=== PATIENT | female | born 1970 | race Caucasian/White ===

== ENCOUNTER → 2016-09-07 | Outpatient (REF) | payer BC ==
[2016-09-07 15:51] LABS: ALBUMIN 3.2 GM/DL (3.2-5.2); ALKALINE PHOSPHATASE 114 U/L (45-117); ALT/SGPT 130 U/L (12-78); ANION GAP 9 MEQ/L (8-16); AST/SGOT 71 U/L (15-37); BILIRUBIN,TOTAL 0.4 MG/DL (0.2-1.0); BLOOD UREA NITROGEN 6 MG/DL (7-18); CALCIUM LEVEL 8.7 MG/DL (8.5-10.1); CARBON DIOXIDE LEVEL 27 MEQ/L (21-32); CHLORIDE LEVEL 100 MEQ/L (98-107); CHOLESTEROL LEVEL 195 MG/DL (<200); CREATININE FOR GFR 0.61 MG/DL (0.55-1.02); GLOMERULAR FILTRATION RATE > 60.0 (>58); GLUCOSE, FASTING 196 MG/DL (70-105); POTASSIUM SERUM 4.5 MEQ/L (3.5-5.1); SODIUM LEVEL 136 MEQ/L (136-145); TOTAL PROTEIN 6.4 GM/DL (6.4-8.2); TRIGLYCERIDES LEVEL 194 MG/DL (<150)
== END ==
LOC: M SFHCLACO 09:37
PROVIDERS: ATTEND Physician Assistant
DX: I10 Essential (primary) hypertension (principal); E78.2 Mixed hyperlipidemia; E11.9 Type 2 diabetes mellitus without complications; E03.9 Hypothyroidism, unspecified

== ENCOUNTER → 2016-11-23 | Outpatient (REF) | payer BC ==
[2016-11-23 15:35] LABS: ALBUMIN 3.1 GM/DL (3.2-5.2); ALBUMIN/GLOBULIN RATIO 0.86 (1.00-1.93); ALKALINE PHOSPHATASE 106 U/L (45-117); ALT/SGPT 129 U/L (12-78); ANION GAP 11 MEQ/L (8-16); AST/SGOT 119 U/L (15-37); BILIRUBIN,TOTAL 0.6 MG/DL (0.2-1.0); BLOOD UREA NITROGEN 6 MG/DL (7-18); CARBON DIOXIDE LEVEL 27 MEQ/L (21-32); CHLORIDE LEVEL 99 MEQ/L (98-107); CHOLESTEROL LEVEL 220 MG/DL (<200); GLOMERULAR FILTRATION RATE > 60.0 (>58); GLUCOSE, FASTING 190 MG/DL (70-105); POTASSIUM SERUM 4.7 MEQ/L (3.5-5.1); SODIUM LEVEL 137 MEQ/L (136-145); TOTAL PROTEIN 6.7 GM/DL (6.4-8.2); TRIGLYCERIDES LEVEL 205 MG/DL (<150)
== END ==
LOC: M SFHCLACO 09:25
PROVIDERS: ATTEND Physician Assistant
DX: I10 Essential (primary) hypertension (principal); E78.2 Mixed hyperlipidemia; E11.9 Type 2 diabetes mellitus without complications; E03.9 Hypothyroidism, unspecified

== ENCOUNTER → 2017-10-06 | Outpatient (REF) | payer BC ==
[2017-10-06 16:06] LABS: ESTIMATED AVERAGE GLUCOSE 183 MG/DL (60-110)
[2017-10-06 16:27] LABS: ALBUMIN 3.5 GM/DL (3.2-5.2); ALKALINE PHOSPHATASE 101 U/L (45-117); ALT/SGPT 73 U/L (12-78); ANION GAP 12 MEQ/L (8-16); AST/SGOT 52 U/L (7-37); BILIRUBIN,TOTAL 0.6 MG/DL (0.2-1.0); BLOOD UREA NITROGEN 11 MG/DL (7-18); CARBON DIOXIDE LEVEL 28 MEQ/L (21-32); CHLORIDE LEVEL 101 MEQ/L (98-107); CHOLESTEROL LEVEL 254 MG/DL (<200); CHOLESTEROL RISK RATIO 6.047 (<5); CREATININE FOR GFR 0.74 MG/DL (0.55-1.30); GLOMERULAR FILTRATION RATE > 60.0 (>58); GLUCOSE, FASTING 148 MG/DL (70-100); HDL CHOLESTEROL 42 MG/DL (>40); LDL CHOLESTEROL 151.6 MG/DL (<100); NON-HDL-C 212 MG/DL; POTASSIUM SERUM 4.6 MEQ/L (3.5-5.1); SODIUM LEVEL 141 MEQ/L (136-145); TRIGLYCERIDES LEVEL 302 MG/DL (<150)
== END ==
LOC: M SFHCLACO 09:45
DX: I10 Essential (primary) hypertension (principal); E78.2 Mixed hyperlipidemia; E11.9 Type 2 diabetes mellitus without complications; E03.9 Hypothyroidism, unspecified

== ENCOUNTER 2020-03-11 01:01 | Emergency (ER) | payer BC ==
[~2020-03-11] VITALS: Ht 165.1 cm; Wt 99.0 kg
[2020-03-11 01:02] VITALS: BP 164/79
[2020-03-11] MEDS ORDERED: [UNRECOGNIZED DRUG - REMARK] (01:10)
[2020-03-11] MEDS ORDERED: FARX1TAB3 PO (01:12)
[2020-03-11] MEDS ORDERED: LYRICA (01:12)
[2020-03-11] MEDS ORDERED: KETOROLAC 60MG 2ML VIAL IM ONE (01:45)
--- NOTE | 2020-03-11 02:27 | REPVR ---
PROCEDURE INFORMATION: Exam: XR Right Shoulder Exam date and time: 03/11/2020 2:04 AM Age: 49 years old Clinical indication: Pain; Shoulder; Right; Additional info: Fall with pain TECHNIQUE: Imaging protocol: XR Right shoulder. Views: 2 or more views. COMPARISON: No relevant prior studies available. FINDINGS: Bones/joints: No fracture or dislocation. Soft tissues: Normal. IMPRESSION: Negative right shoulder. No fracture or dislocation. Electronically signed by: Sukumar Morfin On 03/11/2020 02:27:54 AM
--- NOTE | 2020-03-11 02:27 | REPVR ---
PROCEDURE INFORMATION: Exam: XR Right Humerus Exam date and time: 03/11/2020 2:04 AM Age: 49 years old Clinical indication: Pain; Upper arm; Right; Additional info: Fall with pain TECHNIQUE: Imaging protocol: XR Right humerus Views: 2 or more views. COMPARISON: No relevant prior studies available. FINDINGS: Bones/joints: Normal. No fracture. Soft tissues: Normal. IMPRESSION: Negative right humerus. Electronically signed by: Sukumar Morfin On 03/11/2020 02:27:19 AM
--- NOTE | 2020-03-11 02:29 | REPVR ---
PROCEDURE INFORMATION: Exam: XR Right Wrist Exam date and time: 03/11/2020 2:04 AM Age: 49 years old Clinical indication: Pain; Wrist; Right; Additional info: Fall with pain TECHNIQUE: Imaging protocol: XR Right wrist. Views: 3 or more views. COMPARISON: No relevant prior studies available. FINDINGS: Bones/joints: Normal. No fracture. Soft tissues: Normal. IMPRESSION: Negative right wrist. Electronically signed by: Sukumar Morfin On 03/11/2020 02:29:28 AM
== END 2020-03-11 02:21 | disposition home or self-care (01) ==
LOC: M ED 01:01
DX: M25.511 Pain in right shoulder (principal); W00.9XXA Unspecified fall due to ice and snow, initial encounter; Y92.099 Unspecified place in other non-institutional residence as the place of occurrence of the external cause; Y93.9 Activity, unspecified; Y99.9 Unspecified external cause status; E11.9 Type 2 diabetes mellitus without complications
CPT/HCPCS: 73030; 73060; 73110; 96372; 99283; J1885

== ENCOUNTER 2021-02-16 13:13 | Emergency (ER) | payer BC ==
[~2021-02-16] VITALS: Ht 165.1 cm; Wt 87.5 kg
[~2021-02-16 13:13] MED LIST: FARX1TAB3 PO; LYRICA; [UNRECOGNIZED DRUG - REMARK]
[2021-02-16 13:14] VITALS: BP 155/88
--- OUTSIDE RECORDS SUMMARY | 2021-02-16 13:20 | CCD ---
Author Author [facility] Organization [facility] Address Unknown Phone Unavailable Support Name Relationship Address Phone [employer] ERLINDA. Next Of Kin [address] [place] [address] BURKINCSQ Next Of Kin [address] [place] [address] [employer] RESTAURANT Next Of Kin Unknown Unavailab le [employer] [place] [address] Unavailable LUKAS VILA Next Of Kin [address] [place] [address] Lukas Vila ECON [address] [place] [address] Unavailable Re-disclosure Warning The records that you are about to access may contain information from federally-assisted alcohol or drug abuse programs. If such information is present, then the following federally mandated warning applies: This information has been disclosed to you from records protected by federal confidentiality rules (42 CFR part 2). The federal rules prohibit you from making any further disclosure of this information unless further disclosure is expressly permitted by the written consent of the person to whom it pertains or as otherwise permitted by 42 CFR part 2. A general authorization for the release of medical or other information is NOT sufficient for this purpose. The Federal rules restrict any use of the information to criminally investigate or prosecute any alcohol or drug abuse patient.The records that you are about to access may contain highly sensitive health information, the redisclosure of which is protected by Article 27-F of the [facility] Public Health law. If you continue you may have access to information: Regarding HIV / AIDS; Provided by facilities licensed or operated by the [facility] Office of Mental Health; or Provided by the [facility] Office for People With Developmental Disabilities. If such information is present, then the following [facility] mandated warning applies: This information has been disclosed to you from confidential records which are protected by state law. State law prohibits you from making any further disclosure of this information without the specific written consent of the person to whom it pertains, or as otherwise permitted by law. Any unauthorized further disclosure in violation of state law may result in a fine or custodial sentence or both. A general authorization for the release of medical or other information is NOT sufficient authorization for further disc losure. Medications No Information Insurance Providers Payer name Policy type / Coverage type Policy ID Covered libertarian ID Covered libertarian's relationship to yeh Policy Yeh Plan Information [facility] [id number] SP [id number] BLUE [place] [id number] SP [id number] SELF PAY ANSI-Commercial [id number] ANSI-Commercial [id number] ANSI-Commercial [id number] ANSI-Commercial [id number] ANSI-Commercial [id number] [facility] [id number] SP [id number] CAROLINE EXCHANGE/MARKTPLACE [id number] SP [id number] CAROLINE [id number] SP [id number] [facility]-BS PPO 306 [id number] SP [id number] [facility] [id number] SP [id number] [facility] BC-BS PPO 306 [id number] SP [id number] ANSI-Commercial [id number] Problems, Conditions, and Diagnoses No Information Surgeries/Procedures No Information Results ID Date Data Source [id number] 02/09/2021 12:00:00 AM EST [facility] Name Value Range Interpretation Code Description Data Rossy rce(s) Supporting Document(s) PCR POSITIVE [facility] This lab was ordered by [facility] are and reported by [facility]. Procedure Social History No Information
--- NOTE | 2021-02-16 14:53 | REP ---
INDICATION: DYSPNEA/COUGH COMPARISON: None. TECHNIQUE: PA/Lateral FINDINGS: Lungs: There is mild patchy atelectasis or infiltrate in the right lung base. There is mild elevation of the right hemidiaphragm. There is mild linear fibro atelectatic change in the left lower lung. Heart: Normal in size. Mediastinum: Mediastinal silhouette unremarkable. Pleural angles: Unremarkable.. Bones and soft tissues: Unremarkable. IMPRESSION: There is mild patchy atelectasis or infiltrate in the right lung base. There is mild linear fibro atelectatic change in the left lower lung. <Electronically signed by Kyree Page > 02/16/21 [id number]
--- OUTSIDE RECORDS SUMMARY | 2021-02-16 22:43 | CCD ---
Author Author [facility] Organization [facility] Address Unknown Phone Unavailable Support Name Relationship Address Phone [employer] ERLINDA. Next Of Kin [address] [place] [address] BURK[employer]CSQ Next Of Kin [address] [place] [address] [employer] RESTAURANT Next Of Kin Unknown Unavailab le [employer] [place] [address] Unavailable LUKAS VILA Next Of Kin [address] [place] [address] Lukas Vila ECON [address] [place] [address] Unavailable Re-disclosure Warning The records that you [...] protected by Article 27-F of the [facility] Public Health law. If you continue you may have access to information: Regarding HIV / AIDS; Provided by facilities licensed or operated by the [facility] Office of Mental Health; or Provided by the [facility] Office for People With Developmental Disabilities. If such information is present, then the following [facility] mandated warning applies: This information has been [...] law may result in a fine or penitentiary sentence or both. A general authorization for the release of medical or other information is NOT sufficient authorization for further disc losure. Medications No Information Insurance Providers Payer name Policy type / Coverage type Policy ID Covered democrat ID Covered democrat's relationship to yeh Policy Yeh Plan Information [facility] [id number] SP [id number] BLUE [place] [id number] SP [id number] SELF PAY ANSI-Commercial [id number] ANSI-Commercial [id number] ANSI-Commercial [id number] ANSI-Commercial [id number] ANSI-Commercial [id number] [facility] [id number] SP [id number] CAROLINE EXCHANGE/MARKTPLACE [id number] SP [id number] CAROLINE [id number] SP [id number] [facility] PPO 306 [id number] SP [id number] [facility] [id number] SP [id number] [facility] BC-BS PPO 306 [id number] SP [id number] ANSI-Commercial [id number] Problems, Conditions, and Diagnoses No Information Surgeries/Procedures No Information Results ID Date Data Source [id number] 02/09/2021 12:00:00 AM EST [facility] Name Value Range Interpretation Code Description Data Rossy rce(s) Supporting Document(s) PCR POSITIVE [facility] This lab was ordered by [facility] are and reported by [facility]. Procedure Social History No Information
--- NOTE | 2021-02-21 06:41 | ED PDOC ---
Post-Departure Follow-Up radiology report faxed to [facility] Kia Uribe MD Feb 21, 2021 06:40
== END 2021-02-16 22:37 | disposition left against medical advice (07) ==
LOC: M ED 13:13
DX: Z53.21 Procedure and treatment not carried out due to patient leaving prior to being seen by health care provider (principal)

== ENCOUNTER → 2021-05-06 | Outpatient (REF) | payer BC ==
[2021-05-06 17:23] LABS: ALBUMIN 3.3 GM/DL (3.2-5.2); ALT/SGPT 40 U/L (12-78); BILIRUBIN,TOTAL 0.3 MG/DL (0.2-1.0); BLOOD UREA NITROGEN 11 MG/DL (7-18); CALCIUM LEVEL 9.1 MG/DL (8.5-10.1); CARBON DIOXIDE LEVEL 24 MEQ/L (21-32); CHLORIDE LEVEL 103 MEQ/L (98-107); CHOLESTEROL LEVEL 259 MG/DL (<200); CHOLESTEROL RISK RATIO 6.317 (<5); CREATININE FOR GFR 0.56 MG/DL (0.55-1.30); GLOMERULAR FILTRATION RATE > 60.0 (>51); GLUCOSE, FASTING 162 MG/DL (70-100); HDL CHOLESTEROL 41 MG/DL (>40); NON-HDL-C 218 MG/DL; POTASSIUM SERUM 4.3 MEQ/L (3.5-5.1); SODIUM LEVEL 136 MEQ/L (136-145); TOTAL 25(OH) VITAMIN D 10.6 NG/ML (30.0-100.0); TOTAL PROTEIN 6.8 GM/DL (6.4-8.2); TRIGLYCERIDES LEVEL 414 MG/DL (<150)
[2021-05-06 17:25] LABS: HEMOGLOBIN A1c 8.7 %
== END ==
LOC: M SFHCADAM 14:40
PROVIDERS: ATTEND Physician Assistant
DX: I10 Essential (primary) hypertension (principal); E78.2 Mixed hyperlipidemia; E11.9 Type 2 diabetes mellitus without complications; E03.9 Hypothyroidism, unspecified; E55.9 Vitamin D deficiency, unspecified

== ENCOUNTER → 2021-08-31 | Outpatient (REF) | payer BC ==
[2021-08-31 14:56] LABS: ALBUMIN 3.1 GM/DL (3.2-5.2); ALT/SGPT 37 U/L (12-78); BILIRUBIN,TOTAL 0.4 MG/DL (0.2-1.0); BLOOD UREA NITROGEN 8 MG/DL (7-18); CALCIUM LEVEL 8.3 MG/DL (8.5-10.1); CARBON DIOXIDE LEVEL 27 MEQ/L (21-32); CHLORIDE LEVEL 104 MEQ/L (98-107); CHOLESTEROL LEVEL 235 MG/DL (<200); CHOLESTEROL RISK RATIO 6.184 (<5); CREATININE FOR GFR 0.66 MG/DL (0.55-1.30); GLOMERULAR FILTRATION RATE > 60.0 (>51); GLUCOSE, FASTING 265 MG/DL (70-100); HDL CHOLESTEROL 38 MG/DL (>40); LDL CHOLESTEROL 144 MG/DL (<100); NON-HDL-C 197 MG/DL; POTASSIUM SERUM 4.4 MEQ/L (3.5-5.1); SODIUM LEVEL 137 MEQ/L (136-145); TOTAL PROTEIN 6.5 GM/DL (6.4-8.2); TRIGLYCERIDES LEVEL 267 MG/DL (<150)
[2021-08-31 15:02] LABS: HEMOGLOBIN A1c 9.6 %
== END ==
LOC: M SFHCADAM 09:39
PROVIDERS: ATTEND Physician Assistant
DX: I10 Essential (primary) hypertension (principal); E78.2 Mixed hyperlipidemia; E11.65 Type 2 diabetes mellitus with hyperglycemia

== ENCOUNTER → 2022-02-16 | Outpatient (REF) | payer BC ==
[2022-02-16 17:46] LABS: HEMOGLOBIN A1c 9.4 % (4.0-6.0)
[2022-02-16 18:11] LABS: CHLORIDE LEVEL 98 MMOL/L (98-107); SODIUM LEVEL 137 MMOL/L (136-145)
[2022-02-16 18:12] LABS: ALBUMIN 3.4 G/DL (3.2-5.2); CARBON DIOXIDE LEVEL 26 MMOL/L (20-31)
[2022-02-16 18:17] LABS: BILIRUBIN,TOTAL 0.5 MG/DL (0.3-1.2); BLOOD UREA NITROGEN 14 MG/DL (9-23); GLUCOSE, FASTING 255 MG/DL (60-100)
[2022-02-16 18:18] LABS: CALCIUM LEVEL 9.2 MG/DL (8.5-10.1)
[2022-02-16 18:19] LABS: ALT/SGPT 39 U/L (7.0-40); TOTAL PROTEIN 6.5 G/DL (5.7-8.2)
[2022-02-16 18:20] LABS: CREATININE FOR GFR 0.54 MG/DL (0.55-1.30); GLOMERULAR FILTRATION RATE > 60.0 (>51)
[2022-02-16 18:21] LABS: POTASSIUM SERUM 4.9 MMOL/L (3.5-5.1)
== END ==
LOC: M SFHCADAM 11:34
PROVIDERS: ATTEND Family Medicine
DX: E11.65 Type 2 diabetes mellitus with hyperglycemia (principal)

== ENCOUNTER 2022-07-17 12:47 | Emergency (ER) | payer BC ==
[~2022-07-17] VITALS: Ht 162.6 cm; Wt 87.5 kg
[2022-07-17] MEDS ORDERED: HYDR-3490 (13:02)
[2022-07-17] MEDS ORDERED: LEVO75TA4 (13:02)
[2022-07-17] MEDS ORDERED: JANU100T (13:02)
[2022-07-17] MEDS ORDERED: ROSU10TA6 (13:02)
[2022-07-17] MEDS ORDERED: METF500T13 (13:02)
[2022-07-17] MEDS ORDERED: PIPERACILLIN/TAZOBACTAM SOD 4.5 GM in D5W MINI-BAG PLUS 50 ML IV ONE (13:45)
[2022-07-17] MEDS ORDERED: CEFU50TA PO (13:56)
[2022-07-17 14:17] LABS: BASO # 0.1 10^3/uL (0.0-0.2); BASO % 0.6 % (0.0-1.0); EOS % 0.2 % (0.0-3.0); HEMOGLOBIN 15.4 g/dl (12.0-15.5); LYMPH # 2.4 10^3/uL (1.5-5.0); LYMPH % 17.2 % (24.0-44.0); MEAN CORPUSCULAR HEMOGLOBIN 30.3 pg (27.0-33.0); MEAN CORPUSCULAR HGB CONC 34.2 g/dl (32.0-36.5); MEAN CORPUSCULAR VOLUME 88.6 fl (80.0-96.0); MONO # 0.9 10^3/uL (0.0-0.8); MONO % 6.2 % (2.0-8.0); NEUTROPHILS # 10.5 10^3/uL (1.5-8.5); NEUTROPHILS % 74.2 % (36.0-66.0); PLATELET COUNT, AUTOMATED 372 10^3/uL (150-450); RED BLOOD COUNT 5.08 10^6/uL (4.00-5.40); WHITE BLOOD COUNT 14.1 10^3/uL (4.0-10.0)
[2022-07-17 15:18] VITALS: BP 161/82
[2022-07-19] MEDS ORDERED: GABA-1171 PO (13:49)
[2022-07-19] MEDS ORDERED: ACET650T61 PO (13:49)
== END 2022-07-17 15:20 | disposition home or self-care (01) ==
LOC: M ED 12:47
DX: L03.115 Cellulitis of right lower limb (principal); E11.9 Type 2 diabetes mellitus without complications; I10 Essential (primary) hypertension; E78.5 Hyperlipidemia, unspecified; E03.9 Hypothyroidism, unspecified; Z79.899 Other long term (current) drug therapy
CPT/HCPCS: 73630; 85025; 86140; 96365; 99284; J2543

== ENCOUNTER 2022-07-22 09:19 | Day surgery (SDC) | payer BC ==
[~2022-07-22] VITALS: Ht 162.6 cm; Wt 87.1 kg
[~2022-07-22 09:19] MED LIST changes: +ACET650T61 PO; +CEFU50TA PO; +GABA-1171 PO; +HYDR-3490; +JANU100T; +LEVO75TA4; +METF500T13; +ROSU10TA6; +ceFAZolin SOD 2 GM in IV 1 EA IV ONE
[2022-07-22] MEDS ORDERED: LR 1,000 ML IV SCH (09:45)
[2022-07-22] MEDS ORDERED: INSULIN LISPRO (NovoLOG) PER UNIT SC ONE (10:25)
[2022-07-22] MEDS ORDERED: MIDAZOLAM INJ 2MG/2ML VIAL As Ordered ONE (10:41)
[2022-07-22] MEDS ORDERED: propofoL 200 MG/20 ML VIAL As Ordered ONE (10:41)
[2022-07-22] MEDS ORDERED: fentaNYL 100 MCG/2 ML INJECTION As Ordered ONE (10:41)
[2022-07-22] MEDS ORDERED: ONDANSETRON 4MG 2ML VIAL As Ordered ONE (10:41)
[2022-07-22] MEDS ORDERED: KETOROLAC 60MG 2ML VIAL As Ordered ONE (10:41)
[2022-07-22] MEDS ORDERED: LIDOCAINE 2% 100MG/5ML SDV (FOR ANES.) As Ordered ONE (10:41)
[2022-07-22] MEDS ORDERED: BUPIVACAINE HCL 0.5% 30ML VIAL As Ordered ONE (11:00)
[2022-07-22] MEDS ORDERED: LIDOCAINE 1% MDV 20ML VIAL As Ordered ONE (11:00)
[2022-07-22] MEDS ORDERED: CEPH500T PO (12:29)
[2022-07-22 12:56] VITALS: BP 159/85
[2022-07-22] MEDS ORDERED: KETAMINE HCL 200MG/20ML VIAL As Ordered ONE (13:18)
== END 2022-07-22 13:04 | disposition home or self-care (01) ==
LOC: M SDC 09:19
PROVIDERS: ATTEND Podiatrist Foot & Ankle Surgery
DX: M86.171 Other acute osteomyelitis, right ankle and foot (principal); I10 Essential (primary) hypertension; E78.00 Pure hypercholesterolemia, unspecified; E11.69 Type 2 diabetes mellitus with other specified complication; E03.9 Hypothyroidism, unspecified; E28.2 Polycystic ovarian syndrome; M19.90 Unspecified osteoarthritis, unspecified site; Z79.899 Other long term (current) drug therapy; Z79.2 Long term (current) use of antibiotics; Z79.84 Long term (current) use of oral hypoglycemic drugs; Z79.890 Hormone replacement therapy
CPT/HCPCS: 28820; 81025; 88305; 88311; 93005; J0690; J1815; J1885; J2250; J2405; J3010; S0020

== ENCOUNTER 2023-08-07 12:08 | Emergency (ER) | payer BC ==
[~2023-08-07] VITALS: Ht 165.1 cm; Wt 84.0 kg
[~2023-08-07 12:08] MED LIST changes: +CEPH500T PO; -ROSU10TA6; +ROSU10TA61; -ceFAZolin SOD 2 GM in IV 1 EA IV ONE
[2023-08-07] MEDS ORDERED: PRED20TA (12:14)
[2023-08-07] MEDS ORDERED: CYCL-707 (12:14)
[2023-08-07] MEDS ORDERED: ADVI200T PO (12:52)
[2023-08-07] MEDS ORDERED: PILL CUTTER 1 EACH XX PRN (13:05)
[2023-08-07 13:07] VITALS: BP 156/93
[2023-08-07] MEDS: LOSARTAN 25 MG TAB PO ONE (13:07)
[2023-08-07] MEDS: traMADol 50 MG TAB PO ONE (13:08)
[2023-08-07] MEDS: LIDOCAINE 5% (LIDODERM) PATCH TD ONE (13:08)
[2023-08-07] MEDS ORDERED: LIDO5DIS41 TD (14:00)
[2023-08-07] MEDS ORDERED: LOSA25TA13 PO (14:00)
[2023-08-07] MEDS ORDERED: TRAM50TA2 PO (14:00)
[2023-08-07 14:07] VITALS: BP 177/93; TEMP 98; O2SAT 97
== END 2023-08-07 14:19 | disposition home or self-care (01) ==
LOC: M ED 12:08
DX: M54.32 Sciatica, left side (principal); I10 Essential (primary) hypertension; E11.9 Type 2 diabetes mellitus without complications; Z79.1 Long term (current) use of non-steroidal anti-inflammatories (NSAID); Z79.52 Long term (current) use of systemic steroids; Z79.899 Other long term (current) drug therapy

== ENCOUNTER → 2023-08-09 | Outpatient (REF) | payer BC ==
[~2023-08-09] MED LIST changes: +ADVI200T PO; +CYCL-707; +LIDO5DIS41 TD; +LOSA25TA13 PO; +PRED20TA; +TRAM50TA2 PO
[2023-08-09 14:03] LABS: ALBUMIN 3.5 G/DL (3.2-5.2); ALKALINE PHOSPHATASE 121 U/L (46-116); ALT/SGPT 34 U/L (7.0-40); AST/SGOT 14 U/L (<34); BILIRUBIN,TOTAL 0.7 MG/DL (0.3-1.2); BLOOD UREA NITROGEN 14 MG/DL (9-23); CALCIUM LEVEL 9.9 MG/DL (8.5-10.1); CARBON DIOXIDE LEVEL 25 MMOL/L (20-31); CHLORIDE LEVEL 100 MMOL/L (98-107); CREATININE FOR GFR 0.53 MG/DL (0.55-1.30); GLOMERULAR FILTRATION RATE > 60.0 (>51); GLUCOSE, FASTING 367 MG/DL (60-100); POTASSIUM SERUM 4.5 MMOL/L (3.5-5.1); SODIUM LEVEL 135 MMOL/L (136-145); TOTAL PROTEIN 7.2 G/DL (5.7-8.2)
[2023-08-09 14:10] LABS: HEMOGLOBIN A1c 9.8 % (4.0-6.0)
== END ==
LOC: M SFHCADAM 09:48
PROVIDERS: ATTEND Family Medicine
DX: E11.65 Type 2 diabetes mellitus with hyperglycemia (principal)

== ENCOUNTER 2023-08-11 13:58 | Emergency (ER) | payer BC ==
[~2023-08-11] VITALS: Ht 165.1 cm; Wt 84.9 kg
[2023-08-11] MEDS: methylPREDNISolone 125MG 2ML VIAL IV ONE (19:11)
[2023-08-11] MEDS: KETOROLAC 30 MG/ML 1ML VIAL IV ONE (19:13)
[2023-08-11] MEDS: methocarbamoL 500 MG TAB PO ONE (19:13)
[2023-08-11] MEDS: diazePAM 10MG/2ML SYRINGE IV ONE (19:41)
[2023-08-11] MEDS: HumuLIN R (REGULAR) INSULIN (NovoLIN R) **100U/ML** PER UNIT IV ONE (22:03)
[2023-08-11] MEDS: NS 1,000 ML IV ONE (22:05)
[2023-08-11 22:24] VITALS: BP 191/106
[2023-08-11] MEDS: LOSARTAN 25 MG TAB PO ONE (22:24)
[2023-08-12] MEDS: HumuLIN R (REGULAR) INSULIN (NovoLIN R) **100U/ML** PER UNIT IV ONE (00:44)
[2023-08-12] MEDS: MORPHINE 2 MG/ML 1ML VIAL IV ONE (01:07)
[2023-08-12 01:30] VITALS: BP 175/93; TEMP 97.8; O2SAT 98
== END 2023-08-12 01:35 | disposition short-term general hospital (02) ==
LOC: M ED 13:58
DX: M51.86 Other intervertebral disc disorders, lumbar region (principal); E11.9 Type 2 diabetes mellitus without complications; I10 Essential (primary) hypertension; E03.9 Hypothyroidism, unspecified; E78.5 Hyperlipidemia, unspecified; F17.210 Nicotine dependence, cigarettes, uncomplicated; Z79.1 Long term (current) use of non-steroidal anti-inflammatories (NSAID); Z79.52 Long term (current) use of systemic steroids; Z79.899 Other long term (current) drug therapy
CPT/HCPCS: 72148; 96361; 96374; 96375; 96376; 99285; J1815; J1885; J2919; J3360

== ENCOUNTER → 2023-08-19 | Outpatient (CLI) | payer BC | LOC: M SOG 08:01 | PROVIDERS: ATTEND Orthopaedic Surgery | DX: M54.50 Low back pain, unspecified (principal) ==

== ENCOUNTER → 2023-10-24 | Outpatient (REF) | payer BC ==
[2023-10-24 17:49] LABS: BLOOD UREA NITROGEN 9 MG/DL (9-23); CALCIUM LEVEL 9.2 MG/DL (8.5-10.1); CARBON DIOXIDE LEVEL 28 MMOL/L (20-31); CHLORIDE LEVEL 102 MMOL/L (98-107); CREATININE FOR GFR 0.63 MG/DL (0.55-1.30); GLOMERULAR FILTRATION RATE > 60.0 (>51); GLUCOSE, FASTING 136 MG/DL (60-100); POTASSIUM SERUM 4.2 MMOL/L (3.5-5.1); SODIUM LEVEL 137 MMOL/L (136-145)
== END ==
LOC: M LABDRWAD 15:03
PROVIDERS: ATTEND Nurse Practitioner Family
DX: E11.65 Type 2 diabetes mellitus with hyperglycemia (principal)

== ENCOUNTER → 2023-10-24 | Outpatient (REF) | payer BC ==
[2023-10-24 15:57] LABS: BASO # 0.1 10^3/uL (0.0-0.2); BASO % 0.5 % (0.0-1.0); EOS # 0.3 10^3/uL (0.0-0.5); EOS % 1.9 % (0.0-3.0); HEMATOCRIT 44.3 % (36.0-47.0); HEMOGLOBIN 14.6 g/dl (12.0-15.5); LYMPH # 2.7 10^3/uL (1.5-5.0); LYMPH % 20.4 % (24.0-44.0); MEAN CORPUSCULAR HEMOGLOBIN 30.5 pg (27.0-33.0); MEAN CORPUSCULAR VOLUME 92.7 fl (80.0-96.0); MONO % 7.3 % (2.0-8.0); NEUTROPHILS % 67.7 % (36.0-66.0); PLATELET COUNT, AUTOMATED 314 10^3/uL (150-450); RED BLOOD COUNT 4.78 10^6/uL (4.00-5.40); WHITE BLOOD COUNT 13.4 10^3/uL (4.0-10.0)
[2023-10-24 16:20] LABS: THYROID STIMULATING HORMONE 2.876 uIU/ML (0.55-4.78)
[2023-10-24 16:21] LABS: ALBUMIN 3.4 G/DL (3.2-5.2); ALKALINE PHOSPHATASE 101 U/L (46-116); ALT/SGPT 170 U/L (7.0-40); AST/SGOT 71 U/L (<34); BILIRUBIN,TOTAL 0.7 MG/DL (0.3-1.2); BLOOD UREA NITROGEN 9 MG/DL (9-23); CALCIUM LEVEL 9.1 MG/DL (8.5-10.1); CARBON DIOXIDE LEVEL 28 MMOL/L (20-31); CHLORIDE LEVEL 103 MMOL/L (98-107); CHOLESTEROL LEVEL 234 MG/DL (<200); CHOLESTEROL RISK RATIO 7.04 (<5); CREATININE FOR GFR 0.61 MG/DL (0.55-1.30); FOLATE 11.4 NG/ML (>5.4); GLOMERULAR FILTRATION RATE > 60.0 (>51); GLUCOSE, FASTING 138 MG/DL (60-100); HDL CHOLESTEROL 33.2 MG/DL (>40); NON-HDL-C 200.8 MG/DL; POTASSIUM SERUM 4.3 MMOL/L (3.5-5.1); SODIUM LEVEL 138 MMOL/L (136-145); TOTAL PROTEIN 6.7 G/DL (5.7-8.2); TRIGLYCERIDES LEVEL 204 MG/DL (<150)
[2023-10-24 16:22] LABS: VITAMIN B12 LEVEL 556 PG/ML (211-911)
[2023-10-24 16:23] LABS: FREE T4 1.42 NG/DL (0.89-1.76)
[2023-10-24 17:39] LABS: HEMOGLOBIN A1c 6.9 % (4.0-6.0)
== END ==
LOC: M SFHCADAM 09:17
PROVIDERS: ATTEND Physician Assistant
DX: I10 Essential (primary) hypertension (principal); E78.2 Mixed hyperlipidemia; E03.9 Hypothyroidism, unspecified; E11.65 Type 2 diabetes mellitus with hyperglycemia; M54.30 Sciatica, unspecified side

== ENCOUNTER 2024-07-01 02:57 | Emergency (ER) | payer BC, OTHER, SELFPAY ==
[~2024-07-01] VITALS: Ht 162.6 cm; Wt 78.2 kg
[2024-07-01 06:35] VITALS: BP 216/100
[2024-07-01] MEDS: LOSARTAN 25 MG TAB PO ONE (06:35)
[2024-07-01 07:08] LABS: BASO # 0.1 10^3/uL (0.0-0.2); BASO % 0.4 % (0.0-1.0); EOS # 0.1 10^3/uL (0.0-0.5); EOS % 0.9 % (0.0-3.0); HEMATOCRIT 45.4 % (36.0-47.0); HEMOGLOBIN 15.7 g/dl (12.0-15.5); LYMPH % 29.9 % (24.0-44.0); MEAN CORPUSCULAR HEMOGLOBIN 29.8 pg (27.0-33.0); MEAN CORPUSCULAR HGB CONC 34.6 g/dl (32.0-36.5); MEAN CORPUSCULAR VOLUME 86.3 fl (80.0-96.0); MONO # 0.8 10^3/uL (0.0-0.8); MONO % 5.8 % (2.0-8.0); NEUTROPHILS # 8.3 10^3/uL (1.5-8.5); NEUTROPHILS % 61.7 % (36.0-66.0); PLATELET COUNT, AUTOMATED 394 10^3/uL (150-450); RED BLOOD COUNT 5.26 10^6/uL (4.00-5.40); WHITE BLOOD COUNT 13.4 10^3/uL (4.0-10.0)
[2024-07-01 07:38] LABS: ALBUMIN 3.5 G/DL (3.2-5.2); ALKALINE PHOSPHATASE 125 U/L (35-104); ALT/SGPT 30 U/L (7.0-40); AST/SGOT 21 U/L (<34); BILIRUBIN,DIRECT 0.2 MG/DL (<0.4); BILIRUBIN,TOTAL 0.6 MG/DL (0.3-1.2); BLOOD UREA NITROGEN 13 MG/DL (9-23); CALCIUM LEVEL 9.1 MG/DL (8.5-10.1); CARBON DIOXIDE LEVEL 23 MMOL/L (20-31); CHLORIDE LEVEL 107 MMOL/L (98-107); CREATININE FOR GFR 0.58 MG/DL (0.55-1.30); GLOMERULAR FILTRATION RATE > 90.0 (>51); GLUCOSE, FASTING 150 MG/DL (60-100); POTASSIUM SERUM 3.9 MMOL/L (3.5-5.1); SODIUM LEVEL 143 MMOL/L (136-145); TOTAL PROTEIN 6.9 G/DL (5.7-8.2)
[2024-07-01 07:45] LABS: PROCALCITONIN 0.06 ng/ml
[2024-07-01 07:50] LABS: URIC ACID 5.7 MG/DL (3.1-7.8)
[2024-07-01] MEDS: PIPERACILLIN/TAZOBACTAM SOD 3.375 GM in DEXTROSE 5% (D5W) ADV/MINI-BAG 50 ML IV ONE (08:07)
[2024-07-01] MEDS ORDERED: CIPR-249 PO (08:21)
[2024-07-01] MEDS ORDERED: AMOX875T2 PO (08:21)
[2024-07-01 08:34] LABS: ERYTHROCYTE SEDIMENTATION RATE 28 mm/hr (0-30)
[2024-07-01 09:00] VITALS: BP 173/88; TEMP 97.6; O2SAT 99
== END 2024-07-01 09:27 | disposition home or self-care (01) ==
LOC: M ED 02:57
DX: L03.115 Cellulitis of right lower limb (principal); E11.621 Type 2 diabetes mellitus with foot ulcer; I10 Essential (primary) hypertension; E78.5 Hyperlipidemia, unspecified; E03.9 Hypothyroidism, unspecified; Z79.1 Long term (current) use of non-steroidal anti-inflammatories (NSAID); Z79.2 Long term (current) use of antibiotics; Z79.899 Other long term (current) drug therapy
CPT/HCPCS: 73630; 80048; 80076; 83605; 84145; 84550; 85025; 85652; 86140; 87040; 93041; 94760; 96365; 99285; J2543